=== PATIENT | male | born 1935 | race Caucasian/White ===

== ENCOUNTER 2017-03-31 18:39 | Inpatient (IN) ==
--- NOTE | 2017-03-31 19:23 | Emergency Department Note ---
Disposition Clinical Impression: Elevated troponin, Pneumonitis, Volume depletion Acute renal failure Qualifiers: Acute renal failure type: unspecified Qualified Code(s): N17.9 - Acute kidney failure, unspecified Altered mental status Qualifiers: Altered mental status type: unspecified Qualified Code(s): R41.82 - Altered mental status, unspecified Hypotension Qualifiers: Hypotension type: other hypotension type Qualified Code(s): I95.89 - Other hypotension Disposition: Admitted As Inpatient Condition: Critical Time of Disposition: 22:42 Altered Mental Status HPI - General Chief Complaint: ED Shortness of Breath/Dyspnea Stated Complaint: SHASHA/AMS Time Seen by Provider: 03/31/17 19:02 Source: patient, EMS Mode of arrival: EMS Limitations: altered mental status Nursing Notes Reviewed: Yes Vital Signs Reviewed: Yes - History of Present Illness HPI Narrative: 81 year old male presents to ED from [facility] after becoming decreasingly responsive. Per EMS, patient was complaining of chest pain and shortness of breath at [facility] and he was given an unknown narcotic. He became increasingly lethargic and less alert at that point. He was given 2mg Narcan on route. On presentation to the ED, patient was minimally responsive to painful stimuli. Vitals were noted. He was placed on non rebreather and given an additional 1mg of Narcan and he began to respond to verbal stimuli but was difficult to understand and remained lethargic. 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 Context: unknown Treatments prior to arrival: EMS treatment/medication - Related Data Allergies Allergy/AdvReac Type Severity Reaction Status Date / Time No Known Allergies Allergy Verified 10/31/14 08:23 Limitations: ROS unobtainable due to patients medical condition Past Medical History - Past Medical History Medical history: Reports: COPD, coronary artery disease, dementia, GERD, hypertension, peripheral artery disease, renal disease, other Surgical history: Reports: no surgical history Psychiatric history: Reports: anxiety, depression - Social History Smoking Status: Former smoker Smokeless Tobacco Status: No Alcohol use: Reports: none Drug use: Reports: none Physical Exam - General Limitations: no limitations General appearance: appears intoxicated, lethargic, in distress - Head Head exam: atraumatic, normocephalic, normal inspection - Chest Chest inspection: Present: normal inspection, symmetric chest wall rise - Respiratory Respiratory exam: Present: normal lung sounds bilaterally - Cardiovascular Cardiovascular exam: Present: regular rate, normal rhythm, normal heart sounds Course Course Narrative: 81 year old male presenting to ED after becoming less responsive at [facility]. He was reportedly given a narcotic for pain and subsequently was only responsive to painful stimuli. We will obtain EKG, cbc, bmp, vbg, lactic acid, depakote level, ammonia, cxr. Vital Signs Temperature 98 F 03/31/17 18:58 Pulse Rate 103 03/31/17 18:58 Respiratory Rate 26 03/31/17 18:58 Blood Pressure 110/70 03/31/17 18:58 O2 Sat by Pulse Oximetry 96 03/31/17 18:58 Temperature 98 F 03/31/17 18:58 Pulse Rate 128 03/31/17 22:35 Respiratory Rate 20 03/31/17 23:09 Blood Pressure 154/90 03/31/17 23:09 O2 Sat by Pulse Oximetry 94 03/31/17 22:35 Oxygen Delivery Oxygen Delivery Nasal Cannula Altered Mental Status - [facility] Narrative Medical decision making narrative: 81 year old male presenting with altered mental status and shortness of breath. Vitals significant for tachycardia, tachypnea, and hypoxia. Pt became more responsive after 1mg of Narcan in ED. He was reportedly given a narcotic at [facility] for chest pain. His EKG showed tachycardia and peaked t waves in the anterior leads without ST changes. Labs significant for WBC of 13, Creatinine of 2.90, Troponin of 0.41. He also was noted to become hypotensive during ED visit with Suspected NSTEMI in the setting of acute renal failure secondary to dehydration with possible underlying pneumonia. Discussed with hospitalist who agrees with admission. Consulted cardiology, Dr. Sandhu who will see the patient. - Lab Data Result diagrams: 03/31/17 20:45 03/31/17 20:05 Lab Results 03/31/17 03/31/17 03/31/17 Range/Units 20:04 20:05 20:05 WBC (4.3-11.1) K/mcL RBC (4.19-5.50) M/mcL Hgb (12.9-16.9) g/dL Hct (37.5-50.1) % MCV (83.0-100.0) fL MCH (28.0-33.3) pg MCHC (31.6-35.5) g/dL RDW (11.5-14.5) % Plt Count (140-400) K/mcL MPV (9.4-12.4) fL Immature Gran % (0-4) % Seg Neutrophils % % Lymphocytes % % Monocytes % % Eosinophils % % Basophils % % Neutrophils # (1.6-8.9) K/mcL Lymphocytes # (0.6-4.6) K/mcL Monocytes # (0.0-1.3) K/mcL Eosinophils # (0.0-0.6) K/mcL Basophils # (0.0-0.2) K/mcL VBG pH (7.32-7.42) pH Units VBG pCO2 (41-51) mmHg VBG pO2 (25-50) mmHg VBG HCO3 (21-27) mEq/L Sodium 140 (136-145) mEq/L Potassium 4.7 (3.5-5.1) mEq/L Chloride 105 (98-107) mEq/L Carbon Dioxide 25 (23-29) mEq/L BUN 50 H (8-23) mg/dL Creatinine 2.90 H (0.70-1.30) mg/dL Est GFR ( Amer) 25 L (> 60) Est GFR (Non-Af Amer) 21 L (> 60) BUN/Creatinine Ratio 17 (6-26) Glucose 163 H (70-105) mg/dL Calculated Osmolality 307 H (280-300) Lactic Acid (0.5-2.2) mmol/L Calcium 10.0 (8.6-10.3) mg/dL Ammonia (16-53) mcmol/L Troponin I 0.41 H* (< 0.04) ng/mL Urine Color (Yellow) Urine Clarity (Clear) Urine pH (5.0-8.0) pH Units Ur Specific [place] (1.010-1.025) Urine Protein (Neg-Trace) mg/dL Urine Glucose (UA) (Normal) mg/dL Urine Ketones (Negative) mg/dL Urine Blood (Negative) Urine Nitrite (Negative) Urine Bilirubin (Negative) Urine Urobilinogen (Normal) mg/dL Ur Leukocyte Esterase (Negative) Urine Microscopic RBC (0-3) per hpf Urine Microscopic WBC (0-3) per hpf Ur Squamous Epith Cells (None-Few) per lpf Urine Bacteria (None-Few) per hpf Hyaline Casts (None-Few) per lpf Ur Culture Indicated? (NO) Valproic Acid (50-100) mcg/mL Specimen Rejected Hemolyzed 03/31/17 03/31/17 03/31/17 Range/Units 20:45 20:45 20:45 WBC 13.5 H (4.3-11.1) K/mcL RBC 3.76 L (4.19-5.50) M/mcL Hgb 11.8 L (12.9-16.9) g/dL Hct 37.8 (37.5-50.1) % MCV 100.5 H (83.0-100.0) fL MCH 31.4 (28.0-33.3) pg MCHC 31.2 L (31.6-35.5) g/dL RDW 14.4 (11.5-14.5) % Plt Count 217 (140-400) K/mcL MPV 9.4 (9.4-12.4) fL Immature Gran % 0.7 (0-4) % Seg Neutrophils % 83.6 % Lymphocytes % 7.9 % Monocytes % 7.4 % Eosinophils % 0.1 % Basophils % 0.3 % Neutrophils # 11.3 H (1.6-8.9) K/mcL Lymphocytes # 1.1 (0.6-4.6) K/mcL Monocytes # 1.0 (0.0-1.3) K/mcL Eosinophils # 0.0 (0.0-0.6) K/mcL Basophils # 0.0 (0.0-0.2) K/mcL VBG pH (7.32-7.42) pH Units VBG pCO2 (41-51) mmHg VBG pO2 (25-50) mmHg VBG HCO3 (21-27) mEq/L Sodium (136-145) mEq/L Potassium (3.5-5.1) mEq/L Chloride (98-107) mEq/L Carbon Dioxide (23-29) mEq/L BUN (8-23) mg/dL Creatinine (0.70-1.30) mg/dL Est GFR ( Amer) (> 60) Est GFR (Non-Af Amer) (> 60) BUN/Creatinine Ratio (6-26) Glucose (70-105) mg/dL Calculated Osmolality (280-300) Lactic Acid (0.5-2.2) mmol/L Calcium (8.6-10.3) mg/dL Ammonia 32 (16-53) mcmol/L Troponin I (< 0.04) ng/mL Urine Color (Yellow) Urine Clarity (Clear) Urine pH (5.0-8.0) pH Units Ur Specific [place] (1.010-1.025) Urine Protein (Neg-Trace) mg/dL Urine Glucose (UA) (Normal) mg/dL Urine Ketones (Negative) mg/dL Urine Blood (Negative) Urine Nitrite (Negative) Urine Bilirubin (Negative) Urine Urobilinogen (Normal) mg/dL Ur Leukocyte Esterase (Negative) Urine Microscopic RBC (0-3) per hpf Urine Microscopic WBC (0-3) per hpf Ur Squamous Epith Cells (None-Few) per lpf Urine Bacteria (None-Few) per hpf Hyaline Casts (None-Few) per lpf Ur Culture Indicated? (NO) Valproic Acid 48 L (50-100) mcg/mL Specimen Rejected 03/31/17 03/31/17 03/31/17 Range/Units 21:06 22:25 22:30 WBC (4.3-11.1) K/mcL RBC (4.19-5.50) M/mcL Hgb (12.9-16.9) g/dL Hct (37.5-50.1) % MCV (83.0-100.0) fL MCH (28.0-33.3) pg MCHC (31.6-35.5) g/dL RDW (11.5-14.5) % Plt Count (140-400) K/mcL MPV (9.4-12.4) fL Immature Gran % (0-4) % Seg Neutrophils % % Lymphocytes % % Monocytes % % Eosinophils % % Basophils % % Neutrophils # (1.6-8.9) K/mcL Lymphocytes # (0.6-4.6) K/mcL Monocytes # (0.0-1.3) K/mcL Eosinophils # (0.0-0.6) K/mcL Basophils # (0.0-0.2) K/mcL VBG pH 7.43 H (7.32-7.42) pH Units VBG pCO2 32 L (41-51) mmHg VBG pO2 188 H (25-50) mmHg VBG HCO3 21 (21-27) mEq/L Sodium (136-145) mEq/L Potassium (3.5-5.1) mEq/L Chloride (98-107) mEq/L Carbon Dioxide (23-29) mEq/L BUN (8-23) mg/dL Creatinine (0.70-1.30) mg/dL Est GFR ( Amer) (> 60) Est GFR (Non-Af Amer) (> 60) BUN/Creatinine Ratio (6-26) Glucose (70-105) mg/dL Calculated Osmolality (280-300) Lactic Acid 4.0 H* (0.5-2.2) mmol/L Calcium (8.6-10.3) mg/dL Ammonia (16-53) mcmol/L Troponin I (< 0.04) ng/mL Urine Color Dark Yellow (Yellow) Urine Clarity Clear (Clear) Urine pH 6.0 (5.0-8.0) pH Units Ur Specific [place] 1.022 (1.010-1.025) Urine Protein 30 H (Neg-Trace) mg/dL Urine Glucose (UA) Normal (Normal) mg/dL Urine Ketones Negative (Negative) mg/dL Urine Blood Negative (Negative) Urine Nitrite Negative (Negative) Urine Bilirubin Small H (Negative) Urine Urobilinogen Normal (Normal) mg/dL Ur Leukocyte Esterase Negative (Negative) Urine Microscopic RBC 3-5 H (0-3) per hpf Urine Microscopic WBC 0-3 (0-3) per hpf Ur Squamous Epith Cells Many H (None-Few) per lpf Urine Bacteria None Seen (None-Few) per hpf Hyaline Casts Few (None-Few) per lpf Ur Culture Indicated? NO (NO) Valproic Acid (50-100) mcg/mL Specimen Rejected - EKG Data EKG shows normal: sinus rhythm Rate: tachycardia Rhythm: NSR, PVC's [place]/QRS: normal Hyperacute T waves: v2, v3, v4, v5 When compared to previous EKG there are: changes noted Attestation Statement - Attestation Attestation: I examined this patient and my medical decision-making was reviewed with the Resident Physician. I agree with the documented findings, disposition and treatment plan as described except to the extent set forth below. AMS 90 minutes after oral hydrocodone Partially improved for EMS with nasal narcan Somnolent on arrival, gag intact Rhonchi both lungs Abd soft and non-tender Moves all extremities symmetrically Improved further with 1 m IV narcan Transinet episode of hypotension that improved with saline bolus Hyperacute T-waves on EKG. AMEE, elevated troponin, pneumonitis Poor prognosis Admit, Antibiotics, supplementaloxygen, serial troponins Probable palliative care The high probability of a clinically significant, sudden or life threatening deterioration of the [cardiopulmonary, renal] system(s) required my full and direct attention, intervention and personal management. The aggregate critical care time was [35] minutes. This time is in addition to time spent performing reported procedures but includes the following: [x] Data Review and interpretation [x] Patient assessment and monitoring of vital signs [x] Documentation [x] Medication orders and management
[2017-03-31 20:29] LABS: Potassium 4.7 mEq/L (3.5-5.1)
[2017-03-31 20:56] LABS: Basophils % 0.3 %; Eosinophils % 0.1 %; Hematocrit 37.8 % (37.5-50.1); Hemoglobin 11.8 g/dL (12.9-16.9); Immature Granulocytes % 0.7 % (0-4); Lymphocytes # 1.1 K/mcL (0.6-4.6); Lymphocytes % 7.9 %; Mean Corpuscular HGB Conc 31.2 g/dL (31.6-35.5); Mean Corpuscular Hemoglobin 31.4 pg (28.0-33.3); Mean Corpuscular Volume 100.5 fL (83.0-100.0); Mean Platelet Volume 9.4 fL (9.4-12.4); Monocytes % 7.4 %; Neutrophils # 11.3 K/mcL (1.6-8.9); Platelet Count 217 K/mcL (140-400); Red Blood Count 3.76 M/mcL (4.19-5.50); Red Cell Distribution Width 14.4 % (11.5-14.5); Segmented Neutrophils % 83.6 %
[2017-03-31] MEDS ORDERED: 0.9 % Sodium Chloride 1,000 ML ONE (21:04)
[2017-03-31] MEDS ORDERED: 0.9 % Sodium Chloride 1,000 ML IVC ONE (21:07)
[2017-03-31 21:10] LABS: VBG HCO3 21 mEq/L (21-27); VBG PCO2 32 mmHg (41-51); VBG PH 7.43 pH Units (7.32-7.42); VBG PO2 188 mmHg (25-50)
[2017-03-31 22:44] LABS: Bilirubin,Urine Small (Negative); Blood,Urine Negative (Negative); Clarity,Urine Clear (Clear); Color,Urine Dark Yellow (Yellow); Glucose,Urine (UA) Normal (Normal); Ketones,Urine Negative (Negative); Leukocyte Esterase,Urine Negative (Negative); Nitrite,Urine Negative (Negative); Protein,Urine 30 mg/dL (Neg-Trace); Specific Gravity,Urine 1.022 (1.010-1.025); Urobilinogen,Urine Normal (Normal)
[2017-03-31 22:47] LABS: Bacteria,Urine None Seen per hpf (None-Few); Hyaline Casts,Urine Few per lpf (None-Few); Squamous Epithelial Cell,Urine Many per lpf (None-Few); WBC,Urine 0-3 per hpf (0-3)
[2017-03-31] MEDS ORDERED: Naloxone 0.4 MG/ML INJ IVP PRN (23:02)
--- NOTE | 2017-03-31 23:12 | Internal Med History&Physical ---
Date of Encounter: 04/01/17 Time of Encounter: 23:12 Assessment and Plan (1) Altered mental status Current visit: Yes Status: Acute 81/M resident of [place] Medicated with unknown pain medication for chest pain ( As per ER) noted that he was drowsy and responded to Narcan. patient was worked up in ER and noted that he has worsening PNA on CXR this may be possible etiology of AMS plan Admit as inpatient IV antibiotics resume home medications IV fluids I had long conversation with patient's son Mr Espinosa who is RN Explained about his father's health. Plan of care discussed. Mr Espinosa informed me that he prefer to have palliative and hospice on board tomorrow. Mr Espinosa also does not want any heroic measures and prefer very basic supportive treatment. Palliative consult placed. Qualifiers: Altered mental status type: unspecified Qualified Code(s): R41.82 - Altered mental status, unspecified (2) Acute renal failure Current visit: Yes Status: Acute likely secondary to dehydration Qualifiers: Acute renal failure type: unspecified Qualified Code(s): N17.9 - Acute kidney failure, unspecified (3) Elevated troponin Current visit: Yes Status: Acute possibility of demand ischimia is very high (4) Pneumonitis Current visit: Yes Status: Acute this is possible source for AMS (5) Volume depletion Current visit: Yes Status: Acute dehydration likely secondary to infection Internal Medicine - H&P: HPI Chief complaint: altered mental status Admitted From: Emergency Dept Plans for Post Hospital Care: Home History of present illness: Mr. Copeland is a 81 year old male who has multiple comorbidities and was sent from correction as patient was more drowsy. he was given Narcan here in ER. Patient was more alert and noted that he family at bedside. At halfway patient was given narcotic medication(name unknown) as patient was complaining of chest pain. after that medication it seems that patient was more lethrgic and squad was called. patient was brought to ER for further work up. In ER basic labs were drawn and noted that patient had leucocytosis and elevated creat and troponin. CXR was suggestive of PNA. lactic acid was 4. reason for admission: Possile sepsis. Source ? PNA Past Med Surg Social Fam HX - Past Medical History Medical history: COPD, coronary artery disease, dementia, GERD, hypertension, peripheral artery disease, renal disease, other Psychiatric history: anxiety, depression - Past Surgical History Surgical History: no surgical history - Social History Smoking Status: Former smoker Smokeless Tobacco Status: No Alcohol use: none Drug use: none Internal Medicine - H&P: Meds Acetaminophen [Non-Aspirin] 650 mg PO Q6HR PRN 04/01/17 [History] Bethanechol Chloride [Urecholine] 10 mg PO TID 04/01/17 [History] Calcium Carbonate/Vitamin D3 [Oyster Shell Calcium-Vit D Tab] 1 each PO BID [History] Divalproex Sodium [Depakote Sprinkle] 125 mg PO BID 04/01/17 [History] Docusate Sodium 200 mg PO QAM 04/01/17 [History] Ergocalciferol (VITAMIN D2) [Vitamin D2] 50,000 unit PO QWEEK 04/01/17 [History] Fenofibrate 145 mg PO DAILY 04/01/17 [History] Gabapentin [Neurontin] 200 mg PO HS PRN 04/01/17 [History] Hydrocodon-Acetaminophen 5-325 1 tab PO DAILY PRN 04/01/17 [History] Iron Aspgly,Ps/C/B12/FA/Ca/Suc [Ferrex 150 Forte Plus Capsule] 1 each PO BID [History] Loratadine [Allergy Relief] 10 mg PO DAILY 04/01/17 [History] Metoprolol [Lopressor] 25 mg PO BID 04/01/17 [History] Mirtazapine [Remeron] 30 mg PO HS 04/01/17 [History] Omeprazole [PriLOSEC] 20 mg PO DAILY 04/01/17 [History] Tamsulosin [Flomax] 0.4 mg PO HS 04/01/17 [History] 3 Allergy/AdvReac Type Severity Reaction Status Date / Time No Known Allergies Allergy Verified 10/31/14 08:23 ROS unobtainable: due to mental status All Systems PM: A 10-system review of systems was performed and is negative for pertinent findings except as documented above in the HPI. - Constitutional Vitals: Temp Pulse Resp BP Pulse Ox 98 F 128 20 154/90 94 03/31/17 18:58 03/31/17 22:35 03/31/17 23:09 03/31/17 23:09 02/17/18 22:35 General appearance: Present: A&O X 1, mild distress, pleasant - Head Head exam: Present: atraumatic, normocephalic - Eye Eye exam: Present: PERRL, conjuntiva pink, sclera anicteric Pupils: Present: PERRL - Neck Neck exam general surgery: Present: supple, trachea midline. Absent: lymphadenopathy - Respiratory Respiratory exam: Present: CTAB. Absent: accessory muscle use, rales, rhonchi, wheezes - Cardiovascular Cardiovascular exam: Present: RRR, +S1, +S2. Absent: diastolic murmur, gallop, rubs, systolic murmur - GI/Abdominal GI/Abdominal exam: Present: normal bowel sounds, soft, no peritoneal signs. Absent: distended, tenderness - Extremities Exam Extremities exam: Present: warm, radial pulses palpable and symmetrical. Absent : calf tenderness, cyanotic, pedal edema - Neurological Exam Neurological exam: Present: CN II-XII intact, oriented X3, no focal deficits. Absent: pronater drift, facial droop, speech deficit - Skin Skin exam: Present: dry, intact Internal Med - H&P Results - Labs CBC & Chem 7: 04/01/17 01:46 04/01/17 01:46
[2017-03-31] MEDS ORDERED: 0.9 % Sodium Chloride 1,000 ML IVC SCH (23:15)
[2017-04-01] MEDS ORDERED: Piperacillin/Tazobactam 3.375 GM in D5% in Water (Mini-Bag+) 100 ML IVPB SCH
[2017-04-01] MEDS: *HR* Heparin 5,000 UNIT/ML VIAL SQ SCH ×3 (00:17→18:29)
[2017-04-01 01:55] LABS: Basophils % 0.2 %; Eosinophils % 0.1 %; Hematocrit 40.6 % (37.5-50.1); Immature Granulocytes % 0.3 % (0-4); Lymphocytes # 0.8 K/mcL (0.6-4.6); Lymphocytes % 6.7 %; Mean Corpuscular Hemoglobin 31.7 pg (28.0-33.3); Mean Platelet Volume 9.5 fL (9.4-12.4); Monocytes # 0.6 K/mcL (0.0-1.3); Monocytes % 5.6 %; Neutrophils # 9.7 K/mcL (1.6-8.9); Platelet Count 196 K/mcL (140-400); Red Cell Distribution Width 14.5 % (11.5-14.5); Segmented Neutrophils % 87.1 %
[2017-04-01 02:00] LABS: INR 1.4; Prothrombin Time 15.7 Seconds (9.4-12.1)
[2017-04-01 02:02] LABS: Activated Partial Thrombo Time 43.8 Seconds (26.0-36.0)
[2017-04-01 02:13] LABS: Albumin/Globulin Ratio 0.8 (1.1-2.2); Calcium 9.4 mg/dL (8.6-10.3); Globulin 3.8 g/dL (2.4-3.5); Potassium 4.8 mEq/L (3.5-5.1); Total Protein 6.8 g/dL (6.4-8.9)
--- NOTE | 2017-04-01 10:57 | Cardiology Consult Note ---
Date of Encounter: 04/01/17 Time of Encounter: 10:52 Assessment and Plan (1) Elevated troponin Current Visit: Yes Status: Acute Elevated troponin in this frail appearing, elderly gentleman with altered mentation, A/CKD from a senior living. No significant ST-T changes on ECG. Presentation is not c/w ACS. No obvious distress, but does not coherently answer questions. Given his advanced age, generally frail appearing status, and previous apparent request for DNR - I would recommend a conservative cardiovascular strategy. Aspirin, statin, BB therapy reasonable. Patient is not an ideal candidate for invasive cardiac procedures. Noted palliative care consultation requested. If further cardiac information is needed, it would be reasonable to obtain an echocardiogram, but will hold off for now pending possible transition to comfort care approach. Cardiology will sign off, but please call if any questions or concerns moving forward. Thanks, Brian Sandhu DO, FACC Discussion w patient/family: The assessment and plan as outlined above was discussed with the patient and/or family members who expressed understanding and agreement. All questions were answered. Thank you for involving us in the care of your patient. Please call with any questions. History of Present Illness Consult date: 04/01/17 Requesting physician: Skip Bell Consult reason: Elevated troponin Chief complaint: Altered mentation History of present illness: Mr. Copeland is a 81 year old male admitted from senior living yesterday with altered mentation. Per report, patient reported chest discomfort and dyspnea. Mentation change thought to be rleated to an administered narcotic. Narcan given by EMS. Patient minimally responsive in ER. Seemed a little more responsive after additional narcan. LABS: Cr 2.90 Cr 0.41, 0.35. CXR: Trace bilateral pleural effusions. Possible interstitial edema. Atelectasis. Large hiatal hernia. No prior cardiac testing at [facility]. Currently resting comfortably. Opens eyes, tries to speak, but inaudible words. Hemodynamics appear stable. DNR noted. Palliative care consulted. Past Med Surg Social Fam HX - Past Medical History Medical history: COPD, coronary artery disease, dementia, GERD, hypertension, peripheral artery disease, renal disease, other Psychiatric history: anxiety, depression - Past Surgical History Surgical History: no surgical history - Social History Smoking Status: Former smoker Smokeless Tobacco Status: No Alcohol use: none Drug use: none Medications and Allergies Acetaminophen [Non-Aspirin] 650 mg PO Q6HR PRN 04/01/17 [History] Bethanechol Chloride [Urecholine] 10 mg PO TID 04/01/17 [History] Calcium Carbonate/Vitamin D3 [Oyster Shell Calcium-Vit D Tab] 1 each PO BID [History] Divalproex Sodium [Depakote Sprinkle] 125 mg PO BID 04/01/17 [History] Docusate Sodium 200 mg PO QAM 04/01/17 [History] Ergocalciferol (VITAMIN D2) [Vitamin D2] 50,000 unit PO QWEEK 04/01/17 [History] Fenofibrate 145 mg PO DAILY 04/01/17 [History] Gabapentin [Neurontin] 200 mg PO HS PRN 04/01/17 [History] Hydrocodon-Acetaminophen 5-325 1 tab PO DAILY PRN 04/01/17 [History] Iron Aspgly,Ps/C/B12/FA/Ca/Suc [Ferrex 150 Forte Plus Capsule] 1 each PO BID [History] Loratadine [Allergy Relief] 10 mg PO DAILY 04/01/17 [History] Metoprolol [Lopressor] 25 mg PO BID 04/01/17 [History] Mirtazapine [Remeron] 30 mg PO HS 04/01/17 [History] Omeprazole [PriLOSEC] 20 mg PO DAILY 04/01/17 [History] Tamsulosin [Flomax] 0.4 mg PO HS 04/01/17 [History] 3 Allergy/AdvReac Type Severity Reaction Status Date / Time No Known Allergies Allergy Verified 10/31/14 08:23 ROS unobtainable: due to mental status All Systems Review: A 10-system review of systems was performed and is negative for pertinent findings except as documented above in the HPI. Physical Examination General: Other (Frail appearing, confused. ) HEENT: Atraumatic, Normocephaly, Mucus Membranes Moist Neck: No JVD, Normal carotid pulses Cardiac: Other (Regular, no murmurs. ) Lungs: Other (Shallow) Neuro: Other (Confused) Abdomen: Soft, Non-Tender Skin: No rashes noted on visualized skin Musculoskeletal: No Chest Wall Tenderness Extremities: No Clubbing, No Cyanosis Results 04/01/17 01:46 04/01/17 01:46 Lab Results 04/01/17 04/01/17 04/01/17 01:46 01:46 01:46 WBC 11.2 H Hgb 13.0 Hct 40.6 Plt Count 196 INR 1.4 APTT 43.8 H Sodium Potassium Chloride Carbon Dioxide BUN Creatinine Glucose Calcium Total Bilirubin AST ALT Alkaline Phosphatase Troponin I 0.39 H* 04/01/17 04/01/17 01:46 09:01 WBC Hgb Hct Plt Count INR APTT Sodium 141 Potassium 4.8 Chloride 108 H Carbon Dioxide 26 BUN 53 H Creatinine 2.83 H Glucose 169 H Calcium 9.4 Total Bilirubin 1.0 AST 12 L ALT 4 L Alkaline Phosphatase 36 Troponin I 0.35 H* - EKG Interpretation EKG results cardiology: personally reviewed (Sinus tachycardia, PACs.) Consult Discharge Plan - Plan Additional Instructions: Patient to be admitted to hospital. Referrals: Ke Hale MD [Primary Care Provider] -
[2017-04-01] MEDS ORDERED: Gabapentin 100 MG CAPSULE PO PRN (14:44)
[2017-04-01] MEDS ORDERED: *HR* HYDROcodone/Acet 5/325 mg TABLET PO PRN (14:44)
[2017-04-01] MEDS ORDERED: 0.9 % Sodium Chloride 1,000 ML ONE (14:53)
--- NOTE | 2017-04-01 14:53 | Internal Med Progress Note ---
Date of Encounter: 04/01/17 Time of Encounter: 14:48 - Assessment and plan (1) Septic shock Current Visit: Yes Status: Acute Assessment and plan: Acute metabolic encephalopathy likely secondary to septic shock due to healthcare associated pneumonia present upon admission, unknown agent White blood cell count was 13.5, lactic acid was 4, fever of 100.1 Discontinue Zosyn Start cefepime, Levaquin renally adjusted and vancomycin IV IV fluids, recheck lactic lactic acid Hold metoprolol Discussed with the family possible poor prognosis, they would like the patient to be a DNR CC arrest DNI The family would like to try to make him better without antibiotics and would consider hospice if not responding to the treatment Omeprazole for GI prophylaxis and subcutaneous heparin for DVT prophylaxis. The patient will be admitted as inpatient, expected to stay more than 2 midnights. DNR CC arrest DNI. (2) Acute metabolic encephalopathy Current Visit: Yes Status: Acute (3) Healthcare-associated pneumonia Current Visit: Yes Status: Acute (4) Dementia Current Visit: Yes Status: Acute Assessment and plan: Hold Depakote for now Qualifiers: Dementia type: unspecified type Dementia behavioral disturbance: without behavioral disturbance Qualified Code(s): F03.90 - Unspecified dementia without behavioral disturbance (5) Acute renal failure Current Visit: Yes Status: Acute Assessment and plan: History of chronic kidney disease stage III, acute on chronic renal failure likely secondary to sepsis/septic shock IV fluids Qualifiers: Acute renal failure type: unspecified Qualified Code(s): N17.9 - Acute kidney failure, unspecified (6) Elevated troponin Current Visit: Yes Status: Acute Assessment and plan: Possibly secondary to demand ischemia Cardiology signed off Continue aspirin, statin, may resume beta jamila when blood pressure is better (7) Hypotension Current Visit: Yes Status: Acute Qualifiers: Hypotension type: unspecified hypotension type Qualified Code(s): I95.9 - Hypotension, unspecified - Subjective Interval history: The patient is very sleepy, not able to provide any history, lethargic. Review of systems unable to be completed - Constitutional Vitals: Temp Pulse Resp BP Pulse Ox 100.1 F H 97 16 86/53 93 04/01/17 11:20 04/01/17 11:20 04/01/17 11:20 04/01/17 11:20 04/01/17 11:20 General appearance: Present: A&O X 1, mild distress, pleasant - Head Head exam: Present: atraumatic, normocephalic - Eye Eye exam: Present: PERRL, conjuntiva pink, sclera anicteric Pupils: Present: PERRL - Neck Neck exam general surgery: Present: supple, trachea midline. Absent: lymphadenopathy - Respiratory Respiratory exam: Present: CTAB, rales (Bibasilar crackles). Absent: accessory muscle use, rhonchi, wheezes - Cardiovascular Cardiovascular exam: Present: RRR, +S1, +S2. Absent: diastolic murmur, gallop, rubs, systolic murmur - GI/Abdominal GI/Abdominal exam: Present: normal bowel sounds, soft, no peritoneal signs. Absent: distended, tenderness - Extremities Exam Extremities exam: Present: pedal edema (+1 pitting edema in both lower extremities), warm, radial pulses palpable and symmetrical. Absent: calf tenderness, cyanotic - Neurological Exam Neurological exam: Present: CN II-XII intact, no focal deficits. Absent: oriented X3, pronater drift, facial droop, speech deficit - Skin Skin exam: Present: dry, intact Internal Medicine: Result - Labs CBC & Chem 7: 04/01/17 01:46 04/01/17 01:46 Labs: Short CBC 04/01/17 Range/Units 01:46 WBC 11.2 H (4.3-11.1) K/mcL Hgb 13.0 (12.9-16.9) g/dL Hct 40.6 (37.5-50.1) % Plt Count 196 (140-400) K/mcL Neutrophils # 9.7 H (1.6-8.9) K/mcL BMP 04/01/17 01:46 Sodium 141 Potassium 4.8 Chloride 108 H Carbon Dioxide 26 BUN 53 H Creatinine 2.83 H Glucose 169 H Calcium 9.4 Cardiac Enzymes 04/01/17 04/01/17 Range/Units 01:46 09:01 Troponin I 0.39 H* 0.35 H* (< 0.04) ng/mL Liver Function 04/01/17 Range/Units 01:46 Total Bilirubin 1.0 (0.3-1.0) mg/dL AST 12 L (13-39) Units/L ALT 4 L (7-52) Units/L Alkaline Phosphatase 36 (34-104) Units/L Albumin 3.0 L (3.5-5.7) g/dL - ABG Interpretation ABG results: PT/INR, D-dimer PT 15.7 Seconds (9.4-12.1) H 04/01/17 01:46 Consult Discharge Plan - Plan Additional Instructions: Patient to be admitted to hospital. Referrals: Ke Hale MD [Primary Care Provider] -
[2017-04-01] MEDS: 0.9 % Sodium Chloride 1,000 ML IVC SCH (15:00)
[2017-04-01] MEDS: Cefepime HCl 1,000 MG in Water for inj. (sterile) 20 ML 10 ML IVP SCH (18:27)
[2017-04-01] MEDS ORDERED: Levofloxacin 500 MG/100 ML 500 MG/100 ML BAG IVPB ONE (19:00)
[2017-04-01] MEDS: Aspirin Enteric Coated 81 MG Tablet PO SCH (19:07)
[2017-04-02] MEDS ORDERED: 0.9 % Sodium Chloride 1,000 ML ONE (00:37)
[2017-04-02] MEDS: 0.9 % Sodium Chloride 1,000 ML IVC SCH ×2 (00:38→12:43)
[2017-04-02] MEDS: *HR* Heparin 5,000 UNIT/ML VIAL SQ SCH ×3 (01:46→17:08)
[2017-04-02 05:41] LABS: Hematocrit 30.4 % (37.5-50.1); Mean Corpuscular HGB Conc 30.9 g/dL (31.6-35.5); Mean Corpuscular Hemoglobin 30.9 pg (28.0-33.3); Mean Platelet Volume 9.4 fL (9.4-12.4); Platelet Count 179 K/mcL (140-400); Red Blood Count 3.04 M/mcL (4.19-5.50); Red Cell Distribution Width 14.5 % (11.5-14.5)
[2017-04-02 05:45] LABS: Hemoglobin 9.4 g/dL (12.9-16.9)
[2017-04-02 05:56] LABS: Calcium 8.2 mg/dL (8.6-10.3); Potassium 4.2 mEq/L (3.5-5.1)
[2017-04-02] MEDS: Aspirin Enteric Coated 81 MG Tablet PO SCH (09:35)
--- NOTE | 2017-04-02 09:49 | Internal Med Progress Note ---
Date of Encounter: 04/02/17 Time of Encounter: 09:45 - Assessment and plan (1) Septic shock Current Visit: Yes Status: Acute Assessment and plan: Acute metabolic encephalopathy likely secondary to septic shock due to healthcare associated pneumonia present upon admission, unknown agent White blood cell count was 13.5, lactic acid was 4, fever of 100.1 Discontinued Zosyn Continue cefepime, Levaquin renally adjusted and vancomycin IV day #2 IV fluids May resume metoprolol DNR CC arrest DNI The family would like to try to make him better with antibiotics and would consider hospice if not responding to the treatment Omeprazole for GI prophylaxis and subcutaneous heparin for DVT prophylaxis. The patient will be admitted as inpatient, expected to stay more than 2 midnights. DNR CC arrest DNI. (2) Acute metabolic encephalopathy Current Visit: Yes Status: Acute (3) Healthcare-associated pneumonia Current Visit: Yes Status: Acute (4) Dementia Current Visit: Yes Status: Acute Assessment and plan: Resume Depakote Qualifiers: Dementia type: unspecified type Dementia behavioral disturbance: without behavioral disturbance Qualified Code(s): F03.90 - Unspecified dementia without behavioral disturbance (5) Acute renal failure Current Visit: Yes Status: Acute Assessment and plan: History of chronic kidney disease stage III, acute on chronic renal failure likely secondary to sepsis/septic shock IV fluids Qualifiers: Acute renal failure type: unspecified Qualified Code(s): N17.9 - Acute kidney failure, unspecified (6) Elevated troponin Current Visit: Yes Status: Acute Assessment and plan: Possibly secondary to demand ischemia Cardiology signed off Continue aspirin, statin, may resume beta jamila when blood pressure is better (7) Hypotension Current Visit: Yes Status: Acute Assessment and plan: Secondary to sepsis Resolved Qualifiers: Hypotension type: unspecified hypotension type Qualified Code(s): I95.9 - Hypotension, unspecified - Subjective Interval history: The patient is awake today, mention, not able to provide history, not lethargic anymore. Review of systems unable to be completed - Constitutional Vitals: Temp Pulse Resp BP Pulse Ox 98.1 F 89 15 138/78 98 04/02/17 06:32 04/02/17 06:32 04/02/17 06:32 04/02/17 06:32 04/02/17 06:32 General appearance: Present: A&O X 1, mild distress, pleasant - Head Head exam: Present: atraumatic, normocephalic - Eye Eye exam: Present: PERRL, conjuntiva pink, sclera anicteric Pupils: Present: PERRL - Neck Neck exam general surgery: Present: supple, trachea midline. Absent: lymphadenopathy - Respiratory Respiratory exam: Present: CTAB. Absent: accessory muscle use, rales, rhonchi, wheezes - Cardiovascular Cardiovascular exam: Present: RRR, +S1, +S2. Absent: diastolic murmur, gallop, rubs, systolic murmur - GI/Abdominal GI/Abdominal exam: Present: normal bowel sounds, soft, no peritoneal signs. Absent: distended, tenderness - Extremities Exam Extremities exam: Present: warm, radial pulses palpable and symmetrical. Absent : calf tenderness, cyanotic, pedal edema - Neurological Exam Neurological exam: Present: CN II-XII intact, no focal deficits. Absent: oriented X3, pronater drift, facial droop, speech deficit - Skin Skin exam: Present: dry, intact Internal Medicine: Result - Labs CBC & Chem 7: 04/02/17 04:39 04/02/17 04:39 Labs: Short CBC 04/02/17 Range/Units 04:39 WBC 8.2 (4.3-11.1) K/mcL Hgb 9.4 L D (12.9-16.9) g/dL Hct 30.4 L (37.5-50.1) % Plt Count 179 (140-400) K/mcL BMP 04/02/17 04:39 Sodium 141 Potassium 4.2 Chloride 113 H Carbon Dioxide 23 BUN 51 H Creatinine 2.00 H Glucose 86 Calcium 8.2 L Cardiac Enzymes 04/01/17 04/01/17 Range/Units 09:01 14:04 Troponin I 0.35 H* 0.33 H* (< 0.04) ng/mL - ABG Interpretation ABG results: PT/INR, D-dimer PT 15.7 Seconds (9.4-12.1) H 04/01/17 01:46 Consult Discharge Plan - Plan Additional Instructions: Patient to be admitted to hospital. Referrals: Ke Hale MD [Primary Care Provider] -
--- NOTE | 2017-04-02 13:02 | Event Note ---
Date of Encounter: 04/02/17 Time of Encounter: 13:01 Hospitalist team has requested the palliative standby until they have had a chance to talk to the patient and family are for palliative we will follow at a distance until requested.
[2017-04-02] MEDS: BETHANECHOL CHLORIDE 10 MG PO SCH ×2 (17:08→21:38)
[2017-04-02] MEDS: Cefepime HCl 1,000 MG in Water for inj. (sterile) 20 ML 10 ML IVP SCH (21:36)
[2017-04-02] MEDS: Mirtazapine 15 MG TABLET PO SCH (21:38)
[2017-04-03] MEDS: *HR* Heparin 5,000 UNIT/ML VIAL SQ SCH ×3 (00:42→17:55)
[2017-04-03 06:10] LABS: Hematocrit 31.4 % (37.5-50.1); Hemoglobin 9.9 g/dL (12.9-16.9); Mean Corpuscular HGB Conc 31.5 g/dL (31.6-35.5); Mean Corpuscular Hemoglobin 31.2 pg (28.0-33.3); Mean Corpuscular Volume 99.1 fL (83.0-100.0); Mean Platelet Volume 9.5 fL (9.4-12.4); Platelet Count 176 K/mcL (140-400); Red Blood Count 3.17 M/mcL (4.19-5.50); Red Cell Distribution Width 14.3 % (11.5-14.5)
[2017-04-03 06:30] LABS: Calcium 8.9 mg/dL (8.6-10.3)
[2017-04-03] MEDS: 0.9 % Sodium Chloride 1,000 ML IVC SCH (06:33)
--- NOTE | 2017-04-03 08:56 | Internal Med Progress Note ---
Date of Encounter: 04/03/17 Time of Encounter: 08:54 - Assessment and plan (1) CKD (chronic kidney disease) Current Visit: Yes Status: Chronic Assessment and plan: renal function is back to baseline continue to monitor avoid nephrotoxins Qualifiers: Chronic kidney disease stage: stage 3 (moderate) Qualified Code(s): N18.3 - Chronic kidney disease, stage 3 (moderate) (2) Acute metabolic encephalopathy Current Visit: Yes Status: Acute Assessment and plan: patient has dementia at baseline he seems perpetually confused The family members at the bedside today are not of much help continue to monitor (3) Dementia Current Visit: Yes Status: Chronic Assessment and plan: Resume Depakote Qualifiers: Dementia type: unspecified type Dementia behavioral disturbance: without behavioral disturbance Qualified Code(s): F03.90 - Unspecified dementia without behavioral disturbance (4) Healthcare-associated pneumonia Current Visit: Yes Status: Acute Assessment and plan: continue current antibiotics (5) Septic shock Current Visit: Yes Status: Resolved Assessment and plan: Blood pressure is WNL now we will discontinue IVF - Subjective Interval history: 81 M, resident of SNF Admitted and being manged for severe sepsis with septic shock(resolved), AMEE on CKD, Lactic acidosis, HCAP, Acute hypoxic respiratory failure Family is at the bedside Patient has dementia and is very hard of hearing No new complains, keeps stating he wants to pass urine Requested bladder scan as there is no documentation of urinary output We will discontinue IVF today Family also complained of poor appetite, 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 Absent: lymphadenopathy - Respiratory Respiratory exam: Present: CTAB. Absent: accessory muscle use, rales, rhonchi, wheezes - Cardiovascular Cardiovascular exam: Present: RRR, +S1, +S2, tachycardia. Absent: diastolic murmur, gallop, rubs, systolic murmur - GI/Abdominal GI/Abdominal exam: Present: normal bowel sounds, soft, no peritoneal signs. Absent: distended, tenderness - Extremities Exam Extremities exam: Present: warm, radial pulses palpable and symmetrical. Absent : calf tenderness, cyanotic, pedal edema - Neurological Exam Neurological exam: Present: alert, CN II-XII intact, no focal deficits. Absent : oriented X3, pronater drift, facial droop, speech deficit - Skin Skin exam: Present: dry, intact Internal Medicine: Result - Labs CBC & Chem 7: 04/03/17 05:15 04/03/17 05:15 Labs: Short CBC 04/03/17 Range/Units 05:15 WBC 7.0 (4.3-11.1) K/mcL Hgb 9.9 L (12.9-16.9) g/dL Hct 31.4 L (37.5-50.1) % Plt Count 176 (140-400) K/mcL BMP 04/03/17 05:15 Sodium 142 Potassium 4.0 Chloride 113 H Carbon Dioxide 22 L BUN 41 H Creatinine 1.40 H Glucose 87 Calcium 8.9 - ABG Interpretation ABG results: PT/INR, D-dimer PT 15.7 Seconds (9.4-12.1) H 04/01/17 01:46 Consult Discharge Plan - Plan Additional Instructions: Patient to be admitted to hospital. Referrals: Ke Hale MD [Primary Care Provider] -
[2017-04-03] MEDS ORDERED: Levofloxacin 750 MG/150 ML 750 MG/150 ML BAG IVPB SCH (09:00)
[2017-04-03] MEDS: Aspirin Enteric Coated 81 MG Tablet PO SCH (09:19)
[2017-04-03] MEDS: Divalproex Sodium 125 MG CAPSULE PO SCH (09:19)
[2017-04-03] MEDS: BETHANECHOL CHLORIDE 10 MG PO SCH (09:29)
[2017-04-03] MEDS ORDERED: Levofloxacin 250 MG/50 ML 250 MG/50 ML BAG IVPB SCH (19:00)
[2017-04-03] MEDS: Cefepime HCl 1,000 MG in Water for inj. (sterile) 20 ML 10 ML IVP SCH (21:15)
[2017-04-03] MEDS: Mirtazapine 15 MG TABLET PO SCH (21:16)
[2017-04-04] MEDS: *HR* Heparin 5,000 UNIT/ML VIAL SQ SCH ×2 (01:35→08:26)
[2017-04-04 06:24] LABS: Basophils % 0.4 %; Eosinophils # 0.1 K/mcL (0.0-0.6); Eosinophils % 0.9 %; Hematocrit 32.1 % (37.5-50.1); Immature Granulocytes % 0.6 % (0-4); Lymphocytes # 0.8 K/mcL (0.6-4.6); Lymphocytes % 14.4 %; Mean Corpuscular HGB Conc 31.2 g/dL (31.6-35.5); Mean Corpuscular Hemoglobin 30.7 pg (28.0-33.3); Mean Corpuscular Volume 98.5 fL (83.0-100.0); Monocytes # 0.7 K/mcL (0.0-1.3); Monocytes % 12.8 %; Neutrophils # 3.8 K/mcL (1.6-8.9); Platelet Count 191 K/mcL (140-400); Red Blood Count 3.26 M/mcL (4.19-5.50); Red Cell Distribution Width 14.4 % (11.5-14.5); Segmented Neutrophils % 70.9 %
[2017-04-04 06:42] LABS: BUN/Creatinine Ratio 30 (6-26); Blood Urea Nitrogen 35 mg/dL (8-23); Calcium 9.1 mg/dL (8.6-10.3); Carbon Dioxide 24 mEq/L (23-29); Chloride 114 mEq/L (98-107); Glucose 114 mg/dL (70-105); Osmolality,Calculated 307 (280-300); Potassium 3.9 mEq/L (3.5-5.1); Sodium 144 mEq/L (136-145); eGFR For African Americans > 60 (> 60); eGFR For Non-African Americans 59 (> 60)
[2017-04-04] MEDS: Aspirin Enteric Coated 81 MG Tablet PO SCH (08:27)
[2017-04-04] MEDS: Divalproex Sodium 125 MG CAPSULE PO SCH (08:27)
--- NOTE | 2017-04-04 11:36 | Physician Discharge Referral ---
ExtendedCare Referral Info Transfer To: SNF Provider in Charge: Douglas Pineda Provider in Charge after Transfer: PCP Institutional Level of Care: Skilled - Diagnosis (1) CKD (chronic kidney disease) Priority: Secondary Status: Chronic (2) Acute metabolic encephalopathy Priority: Primary Status: Resolved (3) Dementia Priority: Secondary Status: Chronic (4) Healthcare-associated pneumonia Priority: Primary Status: Acute (5) Septic shock Priority: Primary Status: Resolved Prognosis: Fair Aware of Diagnosis: Family Aware of Prognosis: Family - Transfer Medications Prescriptions: Gabapentin [Neurontin] 200 mg PO HS PRN #20 capsule PRN Reason: Pain HYDROcodone/Acet 5/325 mg [[place] 5-325 mg] 1 tab PO DAILY PRN 6 Days #15 tablet PRN Reason: Pain Levofloxacin [Levaquin] 750 mg PO Q48H #5 tablet Home Medications: Acetaminophen [Non-Aspirin] 650 mg PO Q6HR PRN 04/01/17 [History] Bethanechol Chloride [Urecholine] 10 mg PO TID 04/01/17 [History] Calcium Carbonate/Vitamin D3 [[place] Shell Calcium-Vit D Tab] 1 tab PO BID 04/01 [History] Divalproex Sodium [Depakote Sprinkle] 250 mg PO BID 04/01/17 [History] Docusate Sodium 200 mg PO QAM 04/01/17 [History] Ergocalciferol (VITAMIN D2) [Vitamin D2] 50,000 unit PO FR 04/01/17 [History] Fenofibrate 145 mg PO DAILY 04/01/17 [History] Gabapentin [Neurontin] 200 mg PO HS PRN 04/01/17 [History] Iron Aspgly,Ps/C/B12/FA/Ca/Suc [Ferrex 150 Forte Plus Capsule] 1 cap PO BID [History] Loratadine [Allergy Relief] 10 mg PO DAILY 04/01/17 [History] Metoprolol [Lopressor] 25 mg PO BID 04/01/17 [History] Mirtazapine [Remeron] 30 mg PO HS 04/01/17 [History] Omeprazole [PriLOSEC] 20 mg PO DAILY 04/01/17 [History] Tamsulosin [Flomax] 0.4 mg PO HS 04/01/17 [History] Aspirin Enteric Coated [Aspirin EC] 81 mg PO DAILY tablet. 04/04/17 [Rx] Gabapentin [Neurontin] 200 mg PO HS PRN #20 capsule 04/04/17 [Rx] HYDROcodone/Acet 5/325 mg [[place] 5-325 mg] 1 tab PO DAILY PRN 6 Days #15 tablet 04/04/17 [Rx] Levofloxacin [Levaquin] 750 mg PO Q48H #5 tablet 04/04/17 [Rx] Allergies/Adverse Reactions: 3 Allergy/AdvReac Type Severity Reaction Status Date / Time No Known Allergies Allergy Verified 10/31/14 08:23 - Respiratory Orders Oxygen / L per min (2-3 L per min as needed) Smoking Cessation: Smoking cessation has been advised. For more information, call the [place] Tobacco Quit Line at 4-414-HTNR-NOW. - Mobility Orders Other (as tolerated) - Diet Orders Cardiac CERTIFICATION: I certify that the transfer of the above named patient to an Extended Care Facility is necessary for the continuing treatment of the diagnosis listed. The above information is true and accurate reflection of patient's current condition. Confidential - Redisclosure prohibited without a patient's written consent.
--- NOTE | 2017-04-04 11:43 | Discharge Summary ---
Orders not resulted at time of discharge: Pending orders 04/01/17 01:40 Culture,Blood,Additional [BC] AM 0400 04/01/17 01:46 Culture,Blood [BC] AM 0400 04/05/17 04:00 CBC [Complete Blood Count] [HEME] AM 040 Chem 7 [Basic Metabolic Panel] AM 040 Date of Encounter: 04/04/17 Time of Encounter: 08:45 - Discharge Diagnosis (1) CKD (chronic kidney disease) Priority: Secondary Status: Chronic Comments: Patient had acute worsening of his chronic kidney disease HER TO THE HOSPITAL, POSSIBLY DUE TO HYPOTENSION FROM SEVERE SEPSIS. HIS KIDNEY FUNCTION IS NOT BACK TO BASELINE. Clinically stable to be discharged back to detention facility. Qualifiers: Chronic kidney disease stage: stage 3 (moderate) Qualified Code(s): N18.3 - Chronic kidney disease, stage 3 (moderate) (2) Acute metabolic encephalopathy Priority: Primary Status: Resolved Comments: Patient presented to presumed metabolic encephalopathy, however patient has dementia at baseline and is oriented to person. He has been at his baseline for the past 48 hours and is medically stable to return to detention facility (3) Dementia Priority: Secondary Status: Chronic Comments: Advanced dementia. Continue home medications. Qualifiers: Dementia type: unspecified type Dementia behavioral disturbance: without behavioral disturbance Qualified Code(s): F03.90 - Unspecified dementia without behavioral disturbance (4) Healthcare-associated pneumonia Priority: Primary Status: Acute Comments: Patient was admitted for sepsis with hypotension, lactic acidosis, acute on chronic kidney injury secondary to healthcare associated pneumonia. This has since resolved. Patient continues to require oxygen, continue as needed. He has received 3 days of intravenous antibiotics including cefepime, vancomycin, Levaquin, and Zosyn. He is stable to be discharged home on Levaquin to complete a total of 10 days. (5) Septic shock Priority: Primary Status: Resolved Comments: Sepsis has resolved. The patient is afebrile. Blood pressure is normal. Leukocytosis has resolved. (6) Elevated troponin Priority: Primary Status: Acute Comments: No significant ST-T changes on ECG. Presentation is not c/w ACS. Hospital cardiology, the patient is not a candidate for invasive cardiac procedures, troponin was possibly due to demand ischemia from sepsis. Hospital course: Mr. Copeland is a 81 year old male with multiple medical comorbidities, including advanced dementia, resident of detention facility was referred to a denied emergency room for drowsiness, since patient was given a narcotic medication at the [facility] prior to presentation. Workup in the ER revealed worsening pneumonia on chest x-ray, hypoxia, acute on chronic kidney injury, elevated troponins and hypotension. The patient was admitted for severe sepsis, lactic acidosis, acute on chronic kidney injury. He has since responded to treatment and is back to his baseline. During the early days of admission, the patient's family had requested palliative care evaluation for possible hospice, however the patient medical condition remained stable. The patient is an dietitian evaluation noted due to poor appetite, patient is already on appetite stimulant, recommended additional supplement. He is seen and evaluated at the bedside this morning, he is calm, and in no formal delirium or distress. He is clinically stable to be discharged back to the detention facility on antibiotics orally. Rest of details is as in each diagnosis. Discharge discussed with: family, nurse, social work, case management - Time Spent with Patient Total time spent providing and/or coordinating discharge services: Greater than 30 minutes - Discharge Medications Prescriptions: Gabapentin [Neurontin] 200 mg PO HS PRN #20 capsule PRN Reason: Pain HYDROcodone/Acet 5/325 mg [[place] 5-325 mg] 1 tab PO DAILY PRN 6 Days #15 tablet PRN Reason: Pain Levofloxacin [Levaquin] 750 mg PO Q48H #5 tablet Home Medications: Acetaminophen [Non-Aspirin] 650 mg PO Q6HR PRN 04/01/17 [History] Bethanechol Chloride [Urecholine] 10 mg PO TID 04/01/17 [History] Calcium Carbonate/Vitamin D3 [Oyster Shell Calcium-Vit D Tab] 1 tab PO BID 04/01 [History] Divalproex Sodium [Depakote Sprinkle] 250 mg PO BID 04/01/17 [History] Docusate Sodium 200 mg PO QAM 04/01/17 [History] Ergocalciferol (VITAMIN D2) [Vitamin D2] 50,000 unit PO FR 04/01/17 [History] Fenofibrate 145 mg PO DAILY 04/01/17 [History] Gabapentin [Neurontin] 200 mg PO HS PRN 04/01/17 [History] Iron Aspgly,Ps/C/B12/FA/Ca/Suc [Ferrex 150 Forte Plus Capsule] 1 cap PO BID [History] Loratadine [Allergy Relief] 10 mg PO DAILY 04/01/17 [History] Metoprolol [Lopressor] 25 mg PO BID 04/01/17 [History] Mirtazapine [Remeron] 30 mg PO HS 04/01/17 [History] Omeprazole [PriLOSEC] 20 mg PO DAILY 04/01/17 [History] Tamsulosin [Flomax] 0.4 mg PO HS 04/01/17 [History] Aspirin Enteric Coated [Aspirin EC] 81 mg PO DAILY tablet. 04/04/17 [Rx] Gabapentin [Neurontin] 200 mg PO HS PRN #20 capsule 04/04/17 [Rx] HYDROcodone/Acet 5/325 mg [[place] 5-325 mg] 1 tab PO DAILY PRN 6 Days #15 tablet 04/04/17 [Rx] Levofloxacin [Levaquin] 750 mg PO Q48H #5 tablet 04/04/17 [Rx] Allergies/Adverse Reactions: 3 Allergy/AdvReac Type Severity Reaction Status Date / Time No Known Allergies Allergy Verified 10/31/14 08:23 Date of admission: 03/31/17 23:02 Primary care physician: Ke Hale MD Discharging clinician: Arjun Pineda Anticipated date of discharge: 04/04/17 - Constitutional Vitals: Temp Pulse Resp BP Pulse Ox 97.8 F 82 16 150/65 94 04/04/17 06:38 04/04/17 06:38 04/04/17 06:38 04/04/17 06:38 04/04/17 06:38 General appearance: Present: cachectic, A&O X 1, pleasant, no acute distress - Head Head exam: Present: atraumatic, normocephalic - Eye Eye exam: Present: PERRL, conjuntiva pink, sclera anicteric Pupils: Present: PERRL - Neck Neck exam general surgery: Present: supple, trachea midline. Absent: lymphadenopathy - Respiratory Respiratory exam: Present: CTAB (anterior auscultation only). Absent: accessory muscle use, rales, rhonchi, wheezes - Cardiovascular Cardiovascular exam: Present: RRR, +S1, +S2. Absent: diastolic murmur, gallop, rubs, systolic murmur - GI/Abdominal GI/Abdominal exam: Present: normal bowel sounds, soft, no peritoneal signs. Absent: distended, tenderness - Extremities Exam Extremities exam: Present: warm, radial pulses palpable and symmetrical. Absent : calf tenderness, cyanotic, pedal edema - Neurological Exam Neurological exam: Present: alert, CN II-XII intact, no focal deficits. Absent : oriented X3, pronater drift, facial droop, speech deficit Additional comments: moves all extremities spontaneously - Skin Skin exam: Present: dry, intact - Patient Status Disposition: Transfer SNF Condition: Fair Functional capacity at discharge: bed bound Overall status at discharge: patient is progressing back to baseline - Discharge Instructions Instructions: Hydrocodone/Acetaminophen (By mouth), Gabapentin (By mouth), Levofloxacin (By mouth), Acute Kidney Injury (DC), Pneumonia (DC) Follow Up With: Ke Hale MD [Primary Care Provider] - Additional Instructions: Follow up with SNF physician Complete levaquin for 5 more doses Family has stated they will consider hospice should patient's condition deteriorate - Diet and Activity Diet: low salt diet, other (jose a magic cup L and D)
[2017-04-04 13:07] VITALS: BP 181/94
[2017-04-04] MEDS ORDERED: Aminoglycoside Consult 1 EACH MC ONE (15:50)
--- NOTE | 2017-04-06 08:59 | Electrocardiograph Report ---
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
--- NOTE | 2017-04-06 09:05 | Electrocardiograph Report ---
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
== END 2017-04-04 15:51 | DRG 871 ==
LOC: 2NENU 18:39 → EMEROO 18:39 → 2NENU 23:20
PROVIDERS: ADMIT Internal Medicine; ATTEND Internal Medicine